=== PATIENT | female | born 1995 | race African-American/Black ===

== ENCOUNTER 2019-10-16 10:28 | Emergency (ER) | payer MEDICAID, OTHER ==
[~2019-10-16] VITALS: Ht 157.5 cm; Wt 52.2 kg
[2019-10-16 11:06] LABS: Basophils # (auto) 0.1 uL; Basophils % (auto) 1.3 % (0.0-2.0); Eosinophils # (auto) 0 uL; Eosinophils % (auto) 0.7 % (0.0-7.0); Hematocrit 41.4 % (36.0-46.0); Hemoglobin 14.4 g/dL (12.2-16.2); Lymphocytes # (auto) 1.7 uL; Lymphocytes % (auto) 30.6 % (10.0-50.0); Mean Corpuscular Hgb Conc. 34.8 g/dL (32.0-36.0); Monocytes # (auto) 0.5 uL; Monocytes % (auto) 8.8 % (0.0-12.0); Neutrophils # (auto) 3.3 uL; Neutrophils % (auto) 58.6 % (37.0-80.0); Nucleated Red Blood Cells % 0.1 %; Platelet Count (auto) 172 10^3/uL (140-450); Red Blood Cells 4.65 10^6/uL (4.0-5.20); Red Cell Distribution Width 11.7 % (11.8-14.3); White Blood Cell 5.6 10^3/uL (4.4-10.8)
[2019-10-16 11:27] LABS: Albumin 4.5 g/dL (3.4-5.0); Anion Gap 8 (5-15); Blood Urea Nitrogen 9 mg/dL (7-18); Calcium 8.8 mg/dL (8.5-10.1); Carbon Dioxide 25 mmol/L (21-32); Chloride 108 mmol/L (98-107); Glucose 118 mg/dL (74-106); Magnesium 2.1 mg/dL (1.6-2.6); Sodium 141 mmol/L (136-145)
[2019-10-16 11:32] LABS: Alanine Aminotransferase 16 U/L (13-56); Alkaline Phosphatase 80 U/L (45-117); Aspartate Aminotransferase 9 U/L (15-37); BUN/Creatinine Ratio 11.1; Bilirubin, Total 0.4 mg/dL (0.2-1.0); GFR African American 111 mL/min; GFR Non-African American 92 mL/min; Total Protein 8.5 g/dL (6.4-8.2)
[2019-10-16 12:39] LABS: Urine Bacteria FEW /hpf (None Seen); Urine Blood 2+ /uL (Negative); Urine Specific Gravity 1.014 (1.001-1.035); Urine WBC 17 /hpf (0 - 5)
[2019-10-16] MEDS ORDERED: POTASSIUM EFFERVESENT TAB 25 MEQ PO ONE (13:00)
[2019-10-16 13:09] VITALS: BP 121/93
== END 2019-10-16 13:19 | disposition home or self-care (01) ==
LOC: ER 10:30
DX: E87.6 Hypokalemia (principal); N39.0 Urinary tract infection, site not specified; H66.91 Otitis media, unspecified, right ear; R42 Dizziness and giddiness
CPT/HCPCS: 36415; 71046; 80053; 81001; 83735; 84484; 85025; 93005

== ENCOUNTER 2020-08-06 13:32 | Emergency (ER) | payer MEDICAID ==
[~2020-08-06] VITALS: Ht 157.5 cm; Wt 53.1 kg
[2020-08-06 13:48] VITALS: BP 159/99
== END 2020-08-06 14:51 | disposition home or self-care (01) ==
LOC: ER 13:32
DX: H61.21 Impacted cerumen, right ear (principal); H66.91 Otitis media, unspecified, right ear
CPT/HCPCS: 69209